=== PATIENT | male | born 1980 | race Caucasian/White ===

== ENCOUNTER 2020-09-22 22:35 | Emergency (ER) | payer OTHER, MEDICAID ==
[~2020-09-22] VITALS: Ht 172.7 cm; Wt 80.7 kg
--- NOTE | 2020-09-22 22:42 | NUR ---
PT BIBLAPD C/O OF WANTING TO KILL HIMSELF. PT COMBATIVE AND NOT ANSWERING QUESTIONS. PT BREATHING EVENLY AND UNLABORED. PT CONNECTED TO MONITOR AND POX. PT GIVEN CALL LIGHT. WILL CONTINUE TO MONITOR.
[2020-09-22] MEDS ORDERED: OLANZAPINE 10 MG VIAL IM ONE ×2 (22:56→23:00)
[2020-09-22] MEDS ORDERED: HALOPERIDOL LACTATE INJ 5 MG/ML VIAL ONE (22:57)
[2020-09-22] MEDS ORDERED: diphenhydrAMINE HCL 50 MG/ML VIAL ONE (22:57)
[2020-09-22] MEDS ORDERED: LORAZEPAM INJ 2 MG/ML VIAL ONE (22:59)
[2020-09-22] MEDS ORDERED: HALOPERIDOL LACTATE INJ 5 MG/ML VIAL IM ONE (23:00)
[2020-09-22] MEDS ORDERED: diphenhydrAMINE HCL 50 MG/ML VIAL IM ONE (23:00)
[2020-09-22] MEDS ORDERED: LORAZEPAM INJ 2 MG/ML VIAL IV ONE (23:00)
[2020-09-22 23:24] LABS: BASOPHILS # (AUTO) 0.1 /CMM (0.0-0.2); BASOPHILS % (AUTO) 0.6 % (0.0-2.0); EOSINOPHILS % (AUTO) 0.5 % (0.0-6.0); HEMATOCRIT 44 % (39-51); HEMOGLOBIN 14.9 g/dL (13.5-17.5); LYMPHOCYTES # (AUTO) 1.4 /CMM (0.8-4.8); LYMPHOCYTES % (AUTO) 14.2 % (20.0-44.0); MEAN CORPUSCULAR HGB CONC 34 g/dl (31.0-36.0); MEAN CORPUSCULAR VOLUME 89 fL (80-96); MONOCYTES # (AUTO) 0.7 /CMM (0.1-1.30); MONOCYTES % (AUTO) 7.1 % (2.0-12.0); NEUTROPHILS # (AUTO) 7.9 /CMM (1.8-8.9); NEUTROPHILS % (AUTO) 77.6 % (43.0-81.0); PLATELET COUNT (AUTO) 246 /CMM (150-450); RED BLOOD CELL COUNT(AUTO) 4.98 MIL/uL (4.5-6.0); WHITE BLOOD COUNT (AUTO) 10.2 K/uL (4.3-11.0)
--- NOTE | 2020-09-22 23:30 | NUR ---
covis swab sent to lab
[2020-09-22] MEDS ORDERED: LIDOCAINE 2% JEL UROJET 10 ML MM ONE (23:31)
[2020-09-22 23:56] LABS: CARBON DIOXIDE 22 mmol/L (21-32); CHLORIDE 103 mmol/L (98-107); CREATININE 1.5 mg/dL (0.6-1.3); GLUCOSE 120 mg/dL (74-106); SODIUM SERUM 140 mmol/L (136-145); UREA NITROGEN, BLOOD 27 mg/dL (7-18)
[2020-09-23 00:01] LABS: ALANINE AMINOTRANSFERASE 48 U/L (12-78); ALBUMIN 4.2 g/dL (3.4-5.0); ALCOHOL, BLOOD < 3 mg/dL (0-0); ALKALINE PHOSPHATASE 79 U/L (46-116); ASPARTATE AMINOTRANSFERASE 36 U/L (15-37); BILIRUBIN,DIRECT 0.1 mg/dL (0.0-0.2); BILIRUBIN,TOTAL 0.4 mg/dL (0.2-1.0); TOTAL PROTEIN, SERUM 7.4 g/dL (6.4-8.2)
--- NOTE | 2020-09-23 00:14 | NUR ---
Call from lab. Rapid covid negative.
--- NOTE | 2020-09-23 00:25 | NUR ---
urine obtained and sent to lab
[2020-09-23] MEDS ORDERED: LIDOCAINE 2% JEL UROJET 10 ML MM ONE (00:30)
[2020-09-23 01:30] LABS: BILIRUBIN,URINE NEGATIVE (NEGATIVE); COLOR,URINE YELLOW (YELLOW); LEUKOCYTE ESTERASE ,URINE NEGATIVE (NEGATIVE); NITRITE, URINE NEGATIVE (NEGATIVE); PROTEIN,URINE NEGATIVE (NEGATIVE); UGLUCOSE NEGATIVE (NEGATIVE); UROBILINOGEN,URINE 0.2 EU/dL (0.2)
[2020-09-23 01:37] LABS: BACTERIA,URINE None seen /HPF (None Seen); SQUAMOUS EPITHELIAL CELL,UR Few /HPF (None Seen); URINE AMORPHOUS URATE Few /HPF (None Seen)
--- NOTE | 2020-09-23 02:00 | NUR ---
Pt resting with eyes closed. easily arousable.
--- NOTE | 2020-09-23 07:17 | NUR ---
GAVE REPORT TO CAITY LUZ FOR ANA
--- NOTE | 2020-09-23 07:18 | NUR ---
ENDORSEMENT RECEIVED FROM PASTOR [place] FOR ANA
--- NOTE | 2020-09-23 08:30 | NUR ---
PT ASLEEP, EASILY AWAKEN BY VERBAL STIMULI & WILL GO BACK TO SLEEP. RR EVEN & UNLABORED. WILL CONT TO MONITOR.
--- NOTE | 2020-09-23 13:44 | NUR ---
CALLED [facility] FA[facility]
--- NOTE | 2020-09-23 14:30 | NUR ---
PT PROVIDED WITH MEAL
--- NOTE | 2020-09-23 15:36 | NUR ---
ACCEPTED AT [facility] ACCEPTING: DR RAE INTERNAL MED MD: DR FELIPE CALL FOR REPORT [phone] EXT [id number]
--- NOTE | 2020-09-23 16:02 | NUR ---
CALLED TRANSPORT AM [facility] ETA 1630 PER LATISHA
--- NOTE | 2020-09-23 16:03 | NUR ---
MAGGIE CASTILLO [phone]
--- NOTE | 2020-09-23 18:52 | NUR ---
REPORT GIVEN TO CAITY PAPPAS FOR ANA AT THE [facility]
--- NOTE | 2020-09-23 20:43 | NUR ---
CALLED TRANSPORT AM [facility] ETA [phone].
--- NOTE | 2020-09-23 22:02 | NUR ---
transport at [facility] report given to emt.
[2020-09-23 22:03] VITALS: BP 116/69
--- NOTE | 2020-09-23 22:04 | NUR ---
PT LEFT ON GURNEY WITH 2 EMT ON STABLE CONDITION. NAD NOTED FOR TRANSPORT.
== END 2020-09-23 22:05 ==
LOC: ER 22:37
DX: R45.851 Suicidal ideations (principal); F31.9 Bipolar disorder, unspecified; F43.10 Post-traumatic stress disorder, unspecified; F41.9 Anxiety disorder, unspecified; Z20.822 Contact with and (suspected) exposure to COVID-19; Z88.0 Allergy status to penicillin; Z91.013 Allergy to seafood; R78.4 Finding of other drugs of addictive potential in blood; R79.89 Other specified abnormal findings of blood chemistry
CPT/HCPCS: 36415; 80048; 80076; 80299; 80307; 80320; 81001; 85025; 87426; 96372 ×2; 99285; C9803; J1200; J1630; J2060; J3490; G0480